=== PATIENT | female | born 1955 | race African-American/Black ===

== ENCOUNTER 2019-10-22 14:26 | Outpatient (CLI) | payer MEDICARE, MEDICAID ==
--- NOTE | 2019-10-22 15:30 | MRI ---
MRI Lumbar Spine Noncontrast: HISTORY: Low back pain and sciatica. Patient states lower back pain which radiates into the left hip and into knee. COMPARISON: 07/25/2014 FINDINGS: A tiny increased T2-weighted signal intensity focus is seen in the posterior aspect inferior pole rig ht kidney difficult to characterize but statistically likely represents a tiny cyst. Remaining visualized retroperitoneal structures demonstrate a grossly normal nonenhanced MRI appearance. Conus medullaris is normal in morphology and terminates at the L1-2 level. Again noted is generalized heterogeneity seen diffusely throughout the bone marrow. T10-11 and T11-T12 levels: There are mild broad-based disc bulges at these levels which narrow the ve ntral subarachnoid space. Neural foramina are patent. T12-L1 level: Mild central disc protrusion is present with slight effacement of the ventral aspect of the subarachnoid space. Neural foramina are patent. L1-2: There is a mild disc osteophyte complex with slight flattening of the the anterior aspect of th e thecal sac. Mild left-sided neural foraminal narrowing is present but the right neural foramen is patent. L2-3: There is mild loss of intervertebral disc height with broad-based disc osteophyte complex and m ild facet degenerative changes. Finding result in mild generalized narrowing of the central spinal canal with mild bilateral neural foraminal narrowing. L3-4: There is mild loss of intervertebral disc height with mild disc osteophyte complex and moderate facet hypertrophic changes. There is mild ligamentous thickening present. Mild generalized narrowing of the central spinal canal is present with mild bilateral neural foraminal narrowing. L4-5: There is grade 1 anterolisthesis of L4 on L5 with the degree of listhesis measuring approximate ly 7 mm. There is loss of intervertebral disc height. Broad-based disc osteophyte complex is present. There are severe facet hypertrophic changes and ligamentous thickening present at this level . Again, there is severe narrowing of the central spinal canal, and the degree of central canal narrowing has progressed from the prior exam. Mild bilateral neural foraminal narrowing is present. L5-S1: There is loss of intervertebral disc space height. Broad-based disc osteophyte complex is pres ent with central disc protrusion. Slight effacement of the anterior aspect of thecal sac. Facet hypertrophic changes are identified. Mild bilateral neural foraminal narrowing is seen and iliac endp late degenerative changes noted at this level. IMPRESSION: 1. Multilevel degenerative changes predominantly involving the lower lumbar spine with findings great est at the L4-5 level where there is grade 1 anterolisthesis of L4 on L5 with disc osteophyte complex and prominent facet hypertrophic changes resulting in severe central canal narrowing. The sev erity of the central spinal canal narrowing has progressed compared to study in 2014.
--- NOTE | 2019-10-22 16:09 | RAD ---
RADIOGRAPH LUMBAR SPINE 4 VIEWS: DATE: 10/22/2019 HISTORY: 64-year-old female with low back pain, sciatica, lumbar radiculopathy. COMPARISON: 04/29/2014 FINDINGS: There are 5 lumbar-type vertebrae. Vertebral body heights are maintained. No high-grade scoliosis. Hi gh-grade bilateral facet DJD at L4-5 causing a grade 1 anterolisthesis of L4 on L5 which has worsened since the prior study. No instability between flexion and extension. Moderate disc space cortney rowing at L4-5 has also worsened, now moderate to severe. Moderate to severe disc space narrowing at L5-S1 with endplate sclerosis. No high-grade disc space narrowing superior to the L4 level. IMPRESSION: 1) severe bilateral facet osteoarthrosis at L4-5 causing prominent grade 1 spondylolisthesis (almost grade 2), which has worsened since 2013, along with worsening of degenerative disc disease at that level. 2) no instability. 3) high-grade degenerative disc disease at L4-5 and L5-S1.
== END 2019-10-22 14:27 | disposition home or self-care (01) ==
LOC: TBSIIMAG 14:26
PROVIDERS: ATTEND Physician Assistant
DX: M54.40 Lumbago with sciatica, unspecified side (principal); M47.816 Spondylosis without myelopathy or radiculopathy, lumbar region; M43.16 Spondylolisthesis, lumbar region; M51.36 Other intervertebral disc degeneration, lumbar region; M51.37 Other intervertebral disc degeneration, lumbosacral region; M48.061 Spinal stenosis, lumbar region without neurogenic claudication
CPT/HCPCS: 72120; 72148

== ENCOUNTER 2020-02-24 06:54 | Outpatient (CLI) | payer MEDICARE, MEDICAID, OTHER ==
[2020-02-24 17:31] LABS: Hemoglobin 12.1 g/dL (12.0-16.0); Mean Corpuscular HGB CONC 33.6 g/dL (32.0-36.0); Mean Corpuscular Hemoglobin 29.8 pg (27.0-31.0); Mean Corpuscular Volume 88.5 fL (78.0-98.0); Mean Platelet Volume 7.7 fL (7.4-10.4); Platelet Count 183 thou/uL (130-400); RBC Distribution Width 11.7 % (11.5-14.5); Red Blood Cell (RBC) Count 4.08 mill/uL (4.20-5.40); White Blood Cell (WBC) Count 6.5 thou/uL (4.8-10.8)
[2020-02-24 17:55] LABS: Anion Gap 12 mmol/L (10-20); BUN (Urea Nitrogen) 11 mg/dL (9.8-20.1); Calc. Creatinine Clearance 0 mL/min (70-130); Calcium 9.7 mg/dL (7.8-10.44); Carbon Dioxide 28 mmol/L (23-31); Chloride 102 mmol/L (98-107); Estimated GFR-MDRD 72; Glucose 90 mg/dL (80-115); Potassium 3.1 mmol/L (3.5-5.1); Sodium 139 mmol/L (136-145)
[2020-02-24 18:06] LABS: PTT 28.6 sec (22.9-36.1); Prothrombin Time 12.8 sec (12.0-14.7)
[2020-02-25 11:05] LABS: SARS-CoV-2 MS2 Positive; SARS-CoV-2 N Gene Negative; SARS-CoV-2 S Gene Negative; SARS-CoV-2 orf1ab Negative
== END 2020-02-24 06:55 | disposition home or self-care (01) ==
LOC: LABBT 06:54
PROVIDERS: ATTEND Surgery
DX: Z01.818 Encounter for other preprocedural examination (principal); Z11.59 Encounter for screening for other viral diseases; M54.16 Radiculopathy, lumbar region; M48.062 Spinal stenosis, lumbar region with neurogenic claudication
CPT/HCPCS: 80048; 85027; 85610; 85730; 93005; U0003; 87635; 93010

== ENCOUNTER 2020-02-26 07:59 | Day surgery (SDC) | payer MEDICARE, MEDICAID ==
[2020-02-26] MEDS ORDERED: Thrombin 5000 UNITS/5 ML VIAL ONE (11:07)
[2020-02-26] MEDS ORDERED: Fentanyl 250 MCG/5 ML VIAL ONE (11:17)
[2020-02-26] MEDS ORDERED: Lidocaine 1% PF 5 ML VIAL ONE (12:04)
[2020-02-26] MEDS ORDERED: Ondansetron PF 4 MG/2 ML Vial ONE (12:04)
[2020-02-26] MEDS ORDERED: PROPOFOL 200 MG/20 ML VIAL ONE (12:04)
[2020-02-26] MEDS ORDERED: EPHEDRINE 25 MG/5 ML SYRINGE ONE (12:04)
[2020-02-26] MEDS ORDERED: Glycopyrrolate 0.2 MG/ML 5 ML SYRINGE ONE (12:04)
[2020-02-26] MEDS ORDERED: Ketorolac Tromethamine 30 MG/ML VIAL ONE (12:04)
[2020-02-26] MEDS ORDERED: PHENYLEPHRINE-NS 100 MCG/ML 10 ML SYRINGE ONE (12:04)
[2020-02-26] MEDS ORDERED: Rocuronium Bromide 10 MG/ML (10ML VIAL) ONE (12:04)
[2020-02-26] MEDS ORDERED: Dexamethasone 20 MG/5 ML VIAL ONE (12:04)
[2020-02-26] MEDS ORDERED: Promethazine HCl 25 MG/ML VIAL SLOW IVP PRN (12:55)
[2020-02-26] MEDS ORDERED: Ondansetron HCl/PF 4 MG/2 ML Vial IVP PRN (12:55)
[2020-02-26] MEDS ORDERED: HYDROmorphone 2 MG/ML VIAL SLOW IVP PRN (12:55)
[2020-02-26] MEDS ORDERED: Promethazine HCl 25 MG/ML VIAL IM PRN (12:55)
[2020-02-26] MEDS ORDERED: Morphine Sulfate 2 MG/ML SYRINGE SLOW IVP PRN (12:55)
[2020-02-26] MEDS ORDERED: PACU-Morphine 4MG/ML VIAL SLOW IVP PRN (12:55)
[2020-02-26] MEDS ORDERED: Bisacodyl 10 MG SUPP PR PRN (13:47)
[2020-02-26] MEDS ORDERED: Milk Of Magnesia 30 ML UDCUP PO PRN (13:47)
[2020-02-26] MEDS ORDERED: Fleet Enema 133 ML BOT PR PRN (13:47)
[2020-02-26] MEDS ORDERED: traMADol HCl 50 MG TAB PO PRN (13:47)
[2020-02-26] MEDS ORDERED: tiZANidine HCl 4 MG TAB PO PRN (13:47)
[2020-02-26] MEDS ORDERED: Acetaminophen/Codeine 30-300mg Tablet PO PRN (13:47)
[2020-02-26] MEDS ORDERED: Ondansetron PF 4 MG/2 ML Vial IVP PRN (13:47)
[2020-02-26] MEDS ORDERED: Acetaminophen 325 MG TAB PO PRN (13:47)
[2020-02-26] MEDS ORDERED: Mag-Al 1200 mg/1200 mg/30 ML UDCUP PO PRN (13:47)
[2020-02-26] MEDS: Morphine 2 MG/ML SYRINGE SLOW IVP PRN ×2 (15:38→18:11)
[2020-02-26 16:28] VITALS: BMI 31.6
[2020-02-26] MEDS: Sodium Chloride 0.9% 1,000 ML IV SCH (17:46)
[2020-02-26] MEDS: CEFAZOLIN 2 GM in Premix Bag 1 BAG IVPB SCH (20:18)
[2020-02-26] MEDS: OXcarbazepine 150 MG TAB PO SCH (20:18)
[2020-02-26] MEDS: Benztropine 1 MG TAB PO SCH (20:18)
[2020-02-26] MEDS ORDERED: Atorvastatin Calcium 20 MG TAB PO SCH (21:00)
[2020-02-26] MEDS ORDERED: Aripiprazole 10 MG TAB PO SCH (21:00)
[2020-02-26] MEDS ORDERED: Non-Formulary Item 1 EACH (Lurasidone Hcl [Latuda] 60 MG) PO SCH (21:00)
[2020-02-27] MEDS: Sodium Chloride 0.9% 1,000 ML IV SCH (03:43)
[2020-02-27] MEDS: HYDROcodone/Acetaminophen 7.5/325 mg Tablet PO PRN ×2 (03:52→08:03)
[2020-02-27] MEDS: CEFAZOLIN 2 GM in Premix Bag 1 BAG IVPB SCH (03:53)
[2020-02-27] MEDS: OXcarbazepine 150 MG TAB PO SCH (08:04)
[2020-02-27] MEDS: Benztropine 1 MG TAB PO SCH (08:04)
[2020-02-27 08:10] VITALS: TEMP 98.5
[2020-02-27] MEDS ORDERED: Sodium Chloride 0.9% 1,000 ML IV SCH (08:15)
[2020-02-27] MEDS ORDERED: Hydrochlorothiazide 25 MG TAB PO SCH (09:00)
[2020-02-27] MEDS ORDERED: Venlafaxine HCl XR 150 MG CAP PO SCH (09:00)
[2020-02-27 11:57] VITALS: BP 110/80
--- NOTE | 2020-02-28 00:16 | DIS ---
DATE OF ADMISSION: 02/26/2020 DATE OF DISCHARGE: 02/27/2020 Ms. Darnell was admitted to [facility] on February 26, 2020, by Dr. Srikanth Cason with discharge date of February 27, 2020. ADMISSION DIAGNOSIS: Status post lumbar decompression. HOSPITAL COURSE: Ms. Danrell was admitted for postoperative observation after lumbar spinal decompression and the patient had minimal pain issues overnight. She ambulated with the nursing staff in the morning and did quite well. She has extensive support system at home to assist her during her recovery outside the hospital setting. She was discharged home in good condition with outpatient followup planned in 2 weeks. Job ID: [id number]
--- NOTE | 2020-02-29 12:35 | OP ---
DATE OF PROCEDURE: 02/26/2020 NEON GLASS BENDER: Yadira Tadeo PA-C PREPROCEDURE DIAGNOSIS: Lumbar stenosis with low back and leg pain. POSTPROCEDURE DIAGNOSIS: Lumbar stenosis with low back and leg pain. PROCEDURES PERFORMED: L4-L5 and L5-S1 laminectomies, partial facetectomies, and foraminotomies. DESCRIPTION OF PROCEDURE: After informed consent was obtained from the patient, the patient was brought to the OR. Proper patient, pause, and identification were carried out. The patient was placed under excellent general endotracheal anesthesia and positioned prone on the OR table. All appropriate points were padded. We identified the L4-S1 dorsal spines and lamina. Linear xavier was made over this area. This region was sterilely cleansed, prepared, and draped. Proper patient, pause, and identification were carried out. The wound was then opened with a combination of sharp, monopolar, and blunt dissection. The L4, L5, S1 dorsal spines and lamina were exposed. Localization film confirmed our area of interest and performed L4-L5 and L5-S1 laminectomies, partial facetectomies, and foraminotomies with excellent decompression of the common dural tube and nerve roots. Copious irrigation occurred throughout as did maximizing hemostasis. The wound was then closed in anatomic layers following sprinkling of vancomycin powder. The patient emerged from anesthesia. Job ID: [id number]
== END 2020-02-27 13:30 | disposition home or self-care (01) ==
LOC: SDC 07:59 → SURG B 15:05 → SDC 02-27 13:30
PROVIDERS: ATTEND Surgery
PROC: 01NB0ZZ Release Lumbar Nerve, Open Approach (ICD-10-PCS; principal; 2020-02-26)
DX: M48.061 Spinal stenosis, lumbar region without neurogenic claudication (principal); M54.16 Radiculopathy, lumbar region; Z79.1 Long term (current) use of non-steroidal anti-inflammatories (NSAID); Z79.899 Other long term (current) drug therapy; Z88.8 Allergy status to other drugs, medicaments and biological substances; Z91.030 Bee allergy status
CPT/HCPCS: 76000; J0690; J1100; J1885; J2001; J2270; J2405; J2704; J3010; J3370

== ENCOUNTER 2020-07-07 08:09 | Outpatient (CLI) | payer MEDICARE, MEDICAID ==
--- NOTE | 2020-07-07 08:42 | MMO ---
Bilateral MAMMO Bilat Screen [facility]. CLINICAL HISTORY: Patient is 65 years old and is seen for screening. The patient has no family history of breast cancer. The patient has no personal history of cancer. VIEWS: The views performed were: bilateral craniocaudal with tomosynthesis and bilateral mediolateral oblique with tomosynthesis. FILMS COMPARED: The present examination has been compared to prior imaging studies performed at [facility] on 11/26/2013, 01/07/2015 and 05/15/2016, and at [facility] on 08/05/2012. This study has been interpreted with the assistance of computer-aided detection. MAMMOGRAM FINDINGS: There are scattered fibroglandular densities. There are stable benign appearing calcifications seen in both breasts. There are no suspicious masses, suspicious calcifications, or new areas of architectural distortion. IMPRESSION: THERE IS NO MAMMOGRAPHIC EVIDENCE OF MALIGNANCY. A ROUTINE FOLLOW-UP MAMMOGRAM IN 1 YEAR IS RECOMMENDED. THE RESULTS OF THIS EXAM WERE SENT TO THE PATIENT. ACR BI-RADS Category 2 - Benign finding MAMMOGRAPHY NOTE: 1. A negative mammogram report should not delay a biopsy if a dominant of clinically suspicious mass is present. 2. Approximately 10% to 15% of breast cancers are not detected by mammography. 3. Adenosis and dense breasts may obscure an underlying neoplasm. Reported by: MARLENA GILBERT MD Electonically Signed: [id number]
== END 2020-07-07 08:10 | disposition home or self-care (01) ==
LOC: BICMAMMO 08:09
PROVIDERS: ATTEND Family Medicine
DX: Z12.31 Encounter for screening mammogram for malignant neoplasm of breast (principal)
CPT/HCPCS: 77063; 77067

== ENCOUNTER 2021-07-11 08:37 | Outpatient (CLI) | payer MEDICARE, MEDICAID | END 2021-07-11 08:38 | disposition home or self-care (01) | LOC: BICMAMMO 08:37 | PROVIDERS: ATTEND Family Medicine | DX: Z12.31 Encounter for screening mammogram for malignant neoplasm of breast (principal); Z91.89 Other specified personal risk factors, not elsewhere classified | CPT/HCPCS: 77063; 77067 ==

== ENCOUNTER 2022-11-08 13:39 | Observation (INO) | payer MEDICARE, MEDICAID ==
[2022-11-08 16:53] VITALS: BMI 26.3
[2022-11-08] MEDS ORDERED: Acetaminophen 325 MG TAB PO PRN (17:12)
[2022-11-08] MEDS ORDERED: Ondansetron PF 4 MG/2 ML Vial IVP PRN (17:12)
[2022-11-08] MEDS ORDERED: Ondansetron ODT 4 MG TAB PO PRN (17:12)
[2022-11-08] MEDS ORDERED: Aspirin 325 MG TAB PO SCH (17:15)
[2022-11-08 18:11] LABS: Troponin I Less than 0.010 ng/mL (< 0.028)
[2022-11-09 00:38] LABS: Troponin I Less than 0.010 ng/mL (< 0.028)
[2022-11-09 05:40] LABS: #Eosinphils 0.1 thou/uL (0.0-0.7); #Lymphocytes 1.5 thou/uL (1.20-3.40); #Monocytes 0.5 thou/uL (0.11-0.59); #Neutrophils 2.3 thou/uL (1.40-6.50); %Basophils 0.2 % (0.0-1.0); %Lymphocytes 34.2 % (21.0-51.0); %Monocytes 10.6 % (0.0-10.0); Hemoglobin 11.7 g/dL (12.0-16.0); Mean Corpuscular HGB CONC 32.8 g/dL (32.0-36.0); Mean Corpuscular Hemoglobin 28.7 pg (27.0-31.0); Mean Corpuscular Volume 87.6 fl (78.0-98.0); Mean Platelet Volume 7.8 fL (7.4-10.4); Platelet Count 190 10x3/uL (130-400); RBC Distribution Width 11.5 % (11.5-14.5); Red Blood Cell (RBC) Count 4.06 mill/uL (4.20-5.40); White Blood Cell (WBC) Count 4.3 10x3/uL (4.8-10.8)
[2022-11-09 06:00] LABS: Anion Gap 13 mmol/L (10-20); BUN (Urea Nitrogen) 16 mg/dL (9.8-20.1); Calc. Creatinine Clearance 86 mL/min (70-130); Calcium 9.3 mg/dL (7.8-10.44); Carbon Dioxide 24 mmol/L (23-31); Chloride 108 mmol/L (98-107); Estimated GFR 94; Glucose 93 mg/dL (80-115); Potassium 3.6 mmol/L (3.5-5.1); Sodium 141 mmol/L (136-145)
[2022-11-09] MEDS ORDERED: Hydrochlorothiazide 25 MG TAB PO SCH (09:00)
[2022-11-09] MEDS ORDERED: Aspirin Chewable 81 MG TAB PO SCH (09:00)
[2022-11-09] MEDS ORDERED: Venlafaxine HCl XR 150 MG CAP PO SCH (09:00)
[2022-11-09] MEDS ORDERED: OXcarbazepine 150 MG TAB PO SCH (09:00)
[2022-11-09] MEDS ORDERED: Lubiprostone 24 MCG CAP PO SCH (09:00)
[2022-11-09] MEDS ORDERED: Potassium Chloride 10 MEQ TAB PO SCH (09:00)
[2022-11-09] MEDS ORDERED: Non-Formulary Item 1 EACH (Celecoxib [Celecoxib] 200 MG Capsule) PO SCH (09:00)
[2022-11-09] MEDS ORDERED: Atorvastatin Calcium 20 MG TAB PO SCH (09:00)
[2022-11-09] MEDS ORDERED: Non-Formulary Item 1 EACH (Venlafaxine Hcl [Venlafaxine Hcl Er] 150 MG Tab.Er.24) PO SCH (09:00)
[2022-11-09] MEDS ORDERED: CeleCOXIB 100 MG CAP PO SCH (09:00)
[2022-11-09] MEDS ORDERED: Regadenoson 0.4 MG/5 ML SYRINGE ONE (11:16)
[2022-11-09 11:44] VITALS: BP 173/79; TEMP 99.1
[2022-11-09] MEDS ORDERED: tiZANidine HCl 4 MG TAB PO SCH (14:00)
[2022-11-09] MEDS ORDERED: Non-Formulary Item 1 EACH (Tizanidine Hcl [Tizanidine Hcl] 2 MG Capsule) PO SCH (14:00)
[2022-11-09] MEDS ORDERED: Non-Formulary Item 1 EACH (Lurasidone Hcl [Latuda] 60 MG Tablet) PO SCH (21:00)
[2022-11-09] MEDS ORDERED: Lurasidone 20 MG TABLET PO SCH (21:00)
== END 2022-11-09 14:45 | disposition home or self-care (01) ==
LOC: 2SW 16:38
PROVIDERS: ADMIT Internal Medicine; ATTEND Internal Medicine
DX: R07.89 Other chest pain (principal); K21.9 Gastro-esophageal reflux disease without esophagitis; I10 Essential (primary) hypertension; E78.5 Hyperlipidemia, unspecified; Z79.899 Other long term (current) drug therapy; Z88.0 Allergy status to penicillin; Z88.8 Allergy status to other drugs, medicaments and biological substances; Z91.030 Bee allergy status; Z20.822 Contact with and (suspected) exposure to COVID-19
CPT/HCPCS: 78452; 80048; 83735; 84443; 84484 ×2; 85025; 93017; 94760; A9500; U0003; U0005; 36415; G0378; J2785